=== PATIENT | female | born 1965 | race Caucasian/White ===

== ENCOUNTER 2019-08-13 07:51 | Outpatient (CLI) | payer OTHER, SELFPAY ==
[2019-08-13 08:02] LABS: Basophils Absolute Auto 0.04 K/mm3 (0.00-0.10); Basophils Percent Auto 0.6 % (0.0-1.0); Eosinophils Absolute Auto 0.17 K/mm3 (0.02-0.50); Eosinophils Percent Auto 2.4 % (1.0-6.0); Hematocrit 42.7 % (35.0-49.0); Hemoglobin 14.6 g/dL (12.0-15.0); Immature Granulocyte Absolute 0.02 K/mm3 (0.00-0.00); Immature Granulocyte Percent A 0.3 % (0.0-0.0); Lymphocytes Absolute Auto 1.81 K/mm3 (1.10-4.50); Lymphocytes Percent Auto 25.5 % (18.0-42.0); Mean Corpuscular HGB Conc 34.2 g/dL (32.0-36.0); Mean Corpuscular Hemoglobin 30.4 pg (27.0-31.0); Mean Corpuscular Volume 88.8 fL (78.0-102.0); Mean Platelet Volume 10.4 fl (9.2-11.8); Monocytes Absolute Auto 0.61 K/mm3 (0.10-0.90); Monocytes Percent Auto 8.6 % (2.0-11.0); Neutrophils Absolute Auto 4.5 K/mm3 (1.7-7.2); Neutrophils Percent Auto 62.6 % (50.0-70.0); Platelet Count Result 245 K/mm3 (150-420); Red Blood Count 4.81 M/mm3 (4.20-5.40); Red Cell Distribution Width 12.1 % (11.6-14.4); White Blood Count 7.1 K/mm3 (4.8-10.8)
[2019-08-13 09:22] LABS: Alanine Aminotransferase 32 U/L (14-59); Albumin Level 3.6 g/dL (3.4-5.0); Alkaline Phosphatase 74 U/L (46-116); Anion Gap 15.2 mmol/L (7-16); Aspartate Amino Transferase 22 U/L (15-37); Bilirubin,Total 0.4 mg/dL (0.00-1.00); Blood Urea Nitrogen 17 mg/dL (7-18); Calcium 8.7 mg/dL (8.5-10.1); Carbon Dioxide 27 mmol/L (21-32); Chloride 105 mmol/L (98-108); Cholesterol 209 mg/dL (0-200); Estimated Glomerular Filt Rate > 60; Free T4 Free Thyroxine 1.45 ng/dL (0.76-1.46); Glucose 88 mg/dL (70-99); HDL Direct 61 mg/dL (40-60); LDL Cholesterol Calculated 137 mg/dL (<130); Magnesium 1.9 mg/dL (1.8-2.4); Osmolality Calculated 296 mOsm/kg (285-295); Potassium 4.2 mmol/L (3.5-5.1); Sodium 143 mmol/L (136-145); Thyroid Stimulating Hormone 0.37 uIU/mL (0.36-3.74); Triglycerides 56 mg/dL (0-150)
== END 2019-08-13 07:52 | disposition home or self-care (01) ==
PROVIDERS: PCP Internal Medicine; Visit Provider Internal Medicine
DX: Z00.00 Encounter for general adult medical examination without abnormal findings (principal); I10 Essential (primary) hypertension; E03.9 Hypothyroidism, unspecified
CPT/HCPCS: 36415; 80053; 80061; 83735; 84439; 84443; 85025

== ENCOUNTER 2020-01-10 13:16 | Outpatient (CLI) | payer OTHER, SELFPAY ==
--- NOTE | ~2020-01-10 | MM_ITS ---
EXAMINATION: MM screening [facility] BI w chilo HISTORY: Screening mammogram TECHNIQUE: Craniocaudal and mediolateral oblique 3-D tomosynthesis images were obtained and synthetic 2-D images were generated. CAD analysis was submitted and interpreted. COMPARISON: 12/28/2018, 12/25/2017, 12/19/2016, 12/19/2015 BREAST PARENCHYMAL COMPOSITION: There are scattered areas of fibroglandular density. FINDINGS: There is no evidence of suspicious mass, calcification, or architectural distortion to sugg est malignancy in either breast. There has been no suspicious interval change. IMPRESSION: 1. No mammographic evidence of malignancy. 2. Recommend routine screening mammography in one year. BI-RADS Category 1: Negative Reviewed, dictated and finalized at location A.
== END 2020-01-10 13:17 | disposition home or self-care (01) ==
LOC: CHSIMG 13:18
PROVIDERS: PCP Internal Medicine; Visit Provider Obstetrics & Gynecology
DX: Z12.31 Encounter for screening mammogram for malignant neoplasm of breast (principal)
CPT/HCPCS: 77063; 77067

== ENCOUNTER 2020-09-26 11:17 | Outpatient (CLI) | payer OTHER, SELFPAY ==
[2020-09-26 11:26] LABS: Basophils Absolute Auto 0.05 K/mm3 (0.00-0.10); Basophils Percent Auto 0.7 % (0.0-1.0); Eosinophils Absolute Auto 0.17 K/mm3 (0.02-0.50); Eosinophils Percent Auto 2.5 % (1.0-6.0); Hematocrit 43.4 % (35.0-49.0); Hemoglobin 14.7 g/dL (12.0-15.0); Immature Granulocyte Absolute 0.03 K/mm3 (0.00-0.00); Immature Granulocyte Percent A 0.4 % (0.0-0.0); Lymphocytes Absolute Auto 2.01 K/mm3 (1.10-4.50); Lymphocytes Percent Auto 29.1 % (18.0-42.0); Mean Corpuscular HGB Conc 33.9 g/dL (32.0-36.0); Mean Corpuscular Hemoglobin 29.3 pg (27.0-31.0); Mean Corpuscular Volume 86.6 fL (78.0-102.0); Mean Platelet Volume 10.4 fl (9.2-11.8); Monocytes Absolute Auto 0.54 K/mm3 (0.10-0.90); Monocytes Percent Auto 7.8 % (2.0-11.0); Neutrophils Absolute Auto 4.1 K/mm3 (1.7-7.2); Neutrophils Percent Auto 59.5 % (50.0-70.0); Platelet Count Result 263 K/mm3 (150-420); Red Blood Count 5.01 M/mm3 (4.20-5.40); Red Cell Distribution Width 12.6 % (11.6-14.4); White Blood Count 6.9 K/mm3 (4.8-10.8)
[2020-09-26 12:37] LABS: Alanine Aminotransferase 39 U/L (14-59); Albumin Level 3.4 g/dL (3.4-5.0); Alkaline Phosphatase 92 U/L (46-116); Anion Gap 9 mmol/L (8-16); Aspartate Amino Transferase 18 U/L (15-37); Bilirubin,Total 0.4 mg/dL (0.00-1.00); Blood Urea Nitrogen 16 mg/dL (7-18); Calcium 8.7 mg/dL (8.5-10.1); Carbon Dioxide 29 mmol/L (21-32); Chloride 103 mmol/L (98-108); Cholesterol 230 mg/dL (0-200); Estimated Glomerular Filt Rate 60; Free T4 Free Thyroxine 1.63 ng/dL (0.76-1.46); Glucose 89 mg/dL (70-99); HDL Direct 55 mg/dL (40-60); LDL Cholesterol Calculated 158 mg/dL (<130); Osmolality Calculated 292 mOsm/kg (285-295); Potassium 4.3 mmol/L (3.5-5.1); Sodium 141 mmol/L (136-145); Thyroid Stimulating Hormone 0.11 uIU/mL (0.36-3.74); Total Protein 6.6 g/dL (6.4-8.2); Triglycerides 87 mg/dL (0-150)
== END 2020-09-26 11:18 | disposition home or self-care (01) ==
PROVIDERS: PCP Internal Medicine; Visit Provider Internal Medicine
DX: Z00.00 Encounter for general adult medical examination without abnormal findings (principal); E03.9 Hypothyroidism, unspecified
CPT/HCPCS: 36415; 80053; 80061; 84439; 84443; 85025

== ENCOUNTER 2021-03-16 10:52 | Outpatient (CLI) | payer OTHER, SELFPAY ==
[2021-03-16 12:34] LABS: Free T4 Free Thyroxine 1.25 ng/dL (0.76-1.46); Thyroid Stimulating Hormone 0.27 uIU/mL (0.36-3.74)
[2021-03-19 16:56] LABS: SARS-CoV-2 IgG <1.00 Index (<1.00)
[2021-03-20 13:28] LABS: Vitamin D 25 Hydroxy 48 ng/mL (30-100)
== END 2021-03-16 10:53 | disposition home or self-care (01) ==
PROVIDERS: PCP Internal Medicine; Visit Provider Physician Assistant
DX: E03.9 Hypothyroidism, unspecified (principal); R79.89 Other specified abnormal findings of blood chemistry; Z20.822 Contact with and (suspected) exposure to COVID-19
CPT/HCPCS: 36415; 82306; 84439; 84443; 86769

== ENCOUNTER 2021-11-29 08:36 | Outpatient (CLI) | payer OTHER, SELFPAY ==
[2021-11-29 08:49] LABS: Hematocrit 45.1 % (35.0-49.0); Mean Corpuscular HGB Conc 33.3 g/dL (32.0-36.0); Mean Corpuscular Hemoglobin 29.2 pg (27.0-31.0); Mean Corpuscular Volume 87.7 fL (78.0-102.0); Mean Platelet Volume 10.7 fl (9.2-11.8); Platelet Count Result 253 K/mm3 (150-420); Red Blood Count 5.14 M/mm3 (4.20-5.40); Red Cell Distribution Width 12.3 % (11.6-14.4); White Blood Count 6.6 K/mm3 (4.8-10.8)
[2021-11-29 10:05] LABS: Alanine Aminotransferase 61 U/L (14-59); Albumin Level 3.5 g/dL (3.4-5.0); Alkaline Phosphatase 113 U/L (46-116); Anion Gap 4 mmol/L (8-16); Aspartate Amino Transferase 35 U/L (15-37); Bilirubin,Total 0.3 mg/dL (0.00-1.00); Blood Urea Nitrogen 20 mg/dL (7-18); Calcium 9.1 mg/dL (8.5-10.1); Carbon Dioxide 31 mmol/L (21-32); Chloride 104 mmol/L (98-108); Cholesterol 233 mg/dL (0-200); Estimated Glomerular Filt Rate > 60; Free T3 2.83 pg/mL (2.18-3.98); Free T4 Free Thyroxine 1.39 ng/dL (0.76-1.46); Glucose 86 mg/dL (70-99); HDL Direct 66 mg/dL (40-60); LDL Cholesterol Calculated 152 mg/dL (<130); Osmolality Calculated 289 mOsm/kg (285-295); Potassium 4.1 mmol/L (3.5-5.1); Sodium 139 mmol/L (136-145); Thyroid Stimulating Hormone 1.93 uIU/mL (0.36-3.74); Total Protein 6.9 g/dL (6.4-8.2); Triglycerides 75 mg/dL (0-150); Vitamin B12 906 pg/mL (193-986)
[2021-12-02 09:19] LABS: Folic Acid 13.7 ng/mL (8.6->20)
[2021-12-05 13:56] LABS: Vitamin D 25 Hydroxy 87 ng/mL (30-100)
== END 2021-11-29 08:37 | disposition home or self-care (01) ==
LOC: CHSLAB 08:39
PROVIDERS: PCP Internal Medicine; Visit Provider Physician Assistant
DX: R53.83 Other fatigue (principal); E78.5 Hyperlipidemia, unspecified; E03.9 Hypothyroidism, unspecified; R79.89 Other specified abnormal findings of blood chemistry
CPT/HCPCS: 36415; 80053; 80061; 82306; 82607; 82746; 84439; 84443; 84481; 85027

== ENCOUNTER 2022-12-06 09:48 | Outpatient (CLI) | payer OTHER, SELFPAY ==
[2022-12-06 09:58] LABS: Basophils Absolute Auto 0.04 K/mm3 (0.00-0.10); Basophils Percent Auto 0.6 % (0.0-1.0); Eosinophils Absolute Auto 0.15 K/mm3 (0.02-0.50); Eosinophils Percent Auto 2.4 % (1.0-6.0); Hematocrit 42.6 % (35.0-49.0); Immature Granulocyte Absolute 0.02 K/mm3 (0.00-0.00); Immature Granulocyte Percent A 0.3 % (0.0-0.0); Lymphocytes Absolute Auto 1.68 K/mm3 (1.10-4.50); Lymphocytes Percent Auto 26.7 % (18.0-42.0); Mean Corpuscular HGB Conc 32.9 g/dL (32.0-36.0); Mean Corpuscular Hemoglobin 29.2 pg (27.0-31.0); Mean Corpuscular Volume 88.8 fL (78.0-102.0); Mean Platelet Volume 10.3 fl (9.2-11.8); Monocytes Absolute Auto 0.47 K/mm3 (0.10-0.90); Monocytes Percent Auto 7.5 % (2.0-11.0); Neutrophils Absolute Auto 3.9 K/mm3 (1.7-7.2); Neutrophils Percent Auto 62.5 % (50.0-70.0); Platelet Count Result 252 K/mm3 (150-420); Red Cell Distribution Width 13.2 % (11.6-14.4); White Blood Count 6.3 K/mm3 (4.8-10.8)
[2022-12-06 10:44] LABS: Alanine Aminotransferase 73 U/L (14-59); Albumin Level 3.4 g/dL (3.4-5.0); Alkaline Phosphatase 120 U/L (46-116); Anion Gap 7 mmol/L (8-16); Aspartate Amino Transferase 30 U/L (15-37); Bilirubin,Total 0.4 mg/dL (0.00-1.00); Blood Urea Nitrogen 16 mg/dL (7-18); Calcium 9.1 mg/dL (8.5-10.1); Carbon Dioxide 31 mmol/L (21-32); Chloride 104 mmol/L (98-108); Cholesterol 245 mg/dL (0-200); Estimated Glomerular Filt Rate > 60; Glucose 91 mg/dL (70-99); HDL Direct 75 mg/dL (40-60); LDL Cholesterol Calculated 161 mg/dL (<130); Osmolality Calculated 295 mOsm/kg (285-295); Sodium 142 mmol/L (136-145); Thyroid Stimulating Hormone 2.08 uIU/mL (0.36-3.74); Triglycerides 44 mg/dL (0-150)
== END 2022-12-06 09:49 | disposition home or self-care (01) ==
LOC: CHSLAB 09:50
PROVIDERS: PCP Internal Medicine; Visit Provider Internal Medicine
DX: Z00.00 Encounter for general adult medical examination without abnormal findings (principal); E03.9 Hypothyroidism, unspecified
CPT/HCPCS: 36415; 80053; 80061; 84439; 84443; 85025